=== PATIENT | female | born 1960 | race Caucasian/White ===

== ENCOUNTER → 2017-08-18 | Outpatient (CLI) | payer BC ==
--- NOTE | 2017-08-18 11:50 | RAD ---
MR of the left foot HISTORY: Worsening pain at the first metatarsal. TECHNIQUE: Routine multiplanar sequences are obtained. FINDINGS: No bone lesion or significant marrow edema. No acute fracture. No bone destruction. No tendon rupture or significant tendon sheath fluid. Lisfranc ligament complex and alignment are intact. Bifid variant of the lateral hallux sesamoid. No acute sesamoiditis. No significant joint effusion. Moderate primary osteoarthritis at the first tarsometatarsal joint. IMPRESSION: 1. Primary osteoarthritis at the first MTP joint. 2. No acute findings. Electronically signed by: Naif Gama MD (08/18/2017 11:47 AM) [facility]
== END | disposition home or self-care (01) ==
LOC: MRI 07:44
PROVIDERS: ATTEND Nurse Practitioner Family
DX: M19.072 Primary osteoarthritis, left ankle and foot (principal)
CPT/HCPCS: 73721